=== PATIENT | male | born 1935 | race Caucasian/White ===

== ENCOUNTER 2017-06-25 16:45 | Inpatient (IN) | payer MEDICARE ==
[~2017-06-25] VITALS: Ht 167.6 cm; Wt 78.0 kg
--- NOTE | 2017-06-25 16:46 | NUR ---
LEONEL FROM HOME DT SOB. PATIENT IS AWAKE, ALERT AND ORIENTED. RESPIRATION EVEN AND UNLABORED. NO CHEST PAIN, PATIENT BIN MILD DISTRESS. PATIENT ON O2 VIA NC SATING 96%.SKIN IS WARM TO TOUCH AND NON DIAPHORETIC. PATIENT IS AFEBRILE. GOWNED PATIENT AND CONNECTED PATIENT TO TELE MONITOR.
[2017-06-25 17:17] LABS: BASOPHILS # (AUTO) 0.3 /CMM (0.0-0.2); BASOPHILS % (AUTO) 3.6 % (0.0-2.0); EOSINOPHILS % (AUTO) 0.2 % (0.0-6.0); HEMATOCRIT 28 % (39-51); HEMOGLOBIN 9.5 g/dL (13.5-17.5); LYMPHOCYTES # (AUTO) 0.5 /CMM (0.8-4.8); LYMPHOCYTES % (AUTO) 7.2 % (20.0-44.0); MEAN CORPUSCULAR HGB CONC 34 g/dl (31.0-36.0); MEAN CORPUSCULAR VOLUME 85 fL (80-96); MONOCYTES # (AUTO) 0.5 /CMM (0.1-1.30); MONOCYTES % (AUTO) 6.2 % (2.0-12.0); NEUTROPHILS # (AUTO) 6.1 /CMM (1.8-8.9); NEUTROPHILS % (AUTO) 82.8 % (43.0-81.0); PLATELET COUNT (AUTO) 172 /CMM (150-450); RDW COEFFICIENT OF VARIATION 14.2 (11.5-15.0); RED BLOOD CELL COUNT(AUTO) 3.31 MIL/uL (4.5-6.0); WHITE BLOOD COUNT (AUTO) 7.4 K/uL (4.3-11.0)
[2017-06-25 17:28] LABS: CARBON DIOXIDE 30 mmol/L (21-32); CHLORIDE 102 mmol/L (98-107); CREATININE 0.9 mg/dL (0.6-1.3); GLUCOSE 105 mg/dL (74-106); POTASSIUM 3.7 mmol/L (3.5-5.1); SODIUM SERUM 138 mmol/L (136-145); UREA NITROGEN, BLOOD 13 mg/dL (7-18)
[2017-06-25 17:35] LABS: TROPONIN I 0.028 ng/mL (0.00-0.056)
[2017-06-25 17:38] LABS: INR 2.63 (0.87-1.13)
[2017-06-25 17:40] LABS: ALANINE AMINOTRANSFERASE 28 U/L (12-78); ALBUMIN 3.5 g/dL (3.4-5.0); ALKALINE PHOSPHATASE 82 U/L (46-116); ASPARTATE AMINOTRANSFERASE 21 U/L (15-37); B-TYPE NATRIURETIC PEPTIDE 2048 PG/ML (0-125); BILIRUBIN,DIRECT 0.3 mg/dL (0.0-0.2); BILIRUBIN,TOTAL 1.4 mg/dL (0.2-1.0); TOTAL PROTEIN, SERUM 6.7 g/dL (6.4-8.2)
[2017-06-25] MEDS ORDERED: FUROSEMIDE 40 MG/4 ML VIAL IV ONE (18:00)
[2017-06-25] MEDS ORDERED: WARF3TAB59 PO (18:09)
[2017-06-25] MEDS ORDERED: WARF4TAB72 PO (18:09)
[2017-06-25] MEDS ORDERED: CYAN1TAB66 PO (18:09)
[2017-06-25] MEDS ORDERED: FUROSEMIDE 40 MG/4 ML VIAL ONE (18:09)
[2017-06-25] MEDS ORDERED: VALS1TAB4 PO (18:09)
[2017-06-25] MEDS ORDERED: TAMS0.4C34 PO (18:09)
[2017-06-25] MEDS ORDERED: DILTIAZEM HCL 50 MG IV ONE (18:24)
[2017-06-25] MEDS ORDERED: DILTIAZEM HCL 25 MG IV IV ONE (18:30)
[2017-06-25 18:31] LABS: BAND % (MANUAL) 4 % (0.0-5.0); BASOPHILS % (MANUAL) 0 % (0.0-2.0); EOSINOPHILS % (MANUAL) 0 % (0-4); LYMPHOCYTES % (MANUAL) 7 % (16-48); MONOCYTES % (MANUAL) 10 % (0-11.0); NEUTROPHILS % (MANUAL) 79 (42-76)
--- NOTE | 2017-06-25 19:17 | NUR ---
CALLED LE TOTE LEARNING STRATEGIST WAS PAGED.
--- NOTE | 2017-06-25 19:37 | NUR ---
[id number]- CHARMAINE- CALL ANYTIME
[2017-06-25] MEDS ORDERED: ZOLPIDEM TARTRATE 5 MG TABLET PO PRN (20:30)
[2017-06-25] MEDS ORDERED: Z GUARD REMEDY 2 OZ OINT TP PRN (20:30)
[2017-06-25] MEDS ORDERED: HYDROCODONE/APAP 5/325MG 1 EACH TABLET PO PRN (20:30)
[2017-06-25] MEDS ORDERED: ONDANSETRON HCL/PF 4 MG/2 ML VIAL IVP PRN (20:30)
[2017-06-25] MEDS ORDERED: MAG HYDROX/AL HYDROX/SIMETH 30 ML UDC PO PRN (20:30)
[2017-06-25] MEDS ORDERED: MAGNESIUM HYDROXIDE 30 ML UDC PO PRN (20:30)
--- NOTE | 2017-06-25 20:31 | NUR ---
PATIENT TRANSPORTED TO TELE. S
--- NOTE | 2017-06-25 21:00 | NUR ---
TELE/RN NOTES RECEIVED NEW ADMITTED PATIENT ARRIVED ON A GURNEY FROM ER, ACCOMPANIED BY FAMILY MEMBERS, ABLE TO WALK WITH CANE FOR AMBULATION, ALERT, ORIENTED X3, ABLE TO VERBALIZE NEEDS, SPEAKS SPANISH, FAMILY ASSIST WITH INTERPRETATION, DX WITH CHF AND AFIB, NOTED SOB AND REQUIRE OXYGEN VIA NC AT 3L, TELE MONITOR AFIB 112, NO PAIN VERBALIZED, VITAL SIGNS CHECK WITH LOW GRADE FEVER OF 99.1, FAMILY DISCUSSED CARE AND INFORMED NOT TO GIVE AMBIEN DUE TO CONFUSION AND PREFER MELATONIN TO F/U WITH MD, WILL CONTINUE TO MONITOR. BED IN LOCK POSITION, ROOM ORIENTATION PROVIDED, BELONGINGS CHECK, ON WARFARIN, WILL MONITOR.
[2017-06-25] MEDS: ACETAMINOPHEN 325 MG TABLET PO PRN (22:18)
[2017-06-25] MEDS: CARVEDILOL 6.25 MG TABLET PO SCH (22:33)
[2017-06-26] VITALS (10 sets, daily range): BP systolic 95–149; BP diastolic 38–82
[2017-06-26] MEDS: FUROSEMIDE 40 MG/4 ML VIAL IV SCH ×4 (00:04→17:48)
--- NOTE | 2017-06-26 00:28 | NUR ---
tele/rn notes MD MADE ROUNDS AND ORDERED FOR ALBUTEROL BREATHING TX WITH ATROVENT EVERY 6 HOURS DUE TO SOB AND WHEEZING. ORDERED CARRIED OUT.
[2017-06-26] MEDS: ALBUTEROL HALF STRENGTH 1.25 MG/3 ML VIAL.NEB NEB SCH ×4 (01:01→20:03)
[2017-06-26] MEDS: IPRATROPIUM NEB FS 0.5 MG/2.5 ML AMPUL.NEB NEB SCH ×4 (01:01→20:03)
[2017-06-26] MEDS: ACETAMINOPHEN 325 MG TABLET PO PRN ×2 (04:16→22:23)
--- NOTE | 2017-06-26 06:36 | NUR ---
TELE/RN CLOSING NOTES PATIENT IN BED, RESTING COMFORTABLY IN BED, AWAKE, ALERT X3, ABLE TO SLEEP INTERMITTENTLY, ON BREATHING TREATMENT EVERY 6 HOURS, SKIN WARM TO TOUCH, CALL LIGHTS WITHIN REACH, ASSIST AT ALL TIMES. BED IN LOCK POSITION, ON LASIX, ASSIST TO BATHROOM, WILL CONTINUE TO MONITOR.
[2017-06-26 06:50] LABS: BASOPHILS % (AUTO) 0.1 % (0.0-2.0); EOSINOPHILS % (AUTO) 0.2 % (0.0-6.0); HEMATOCRIT 29 % (39-51); HEMOGLOBIN 9.9 g/dL (13.5-17.5); LYMPHOCYTES # (AUTO) 0.5 /CMM (0.8-4.8); LYMPHOCYTES % (AUTO) 7.5 % (20.0-44.0); MEAN CORPUSCULAR HGB CONC 34 g/dl (31.0-36.0); MEAN CORPUSCULAR VOLUME 86 fL (80-96); MONOCYTES # (AUTO) 0.5 /CMM (0.1-1.30); NEUTROPHILS # (AUTO) 5.6 /CMM (1.8-8.9); NEUTROPHILS % (AUTO) 84.2 % (43.0-81.0); PLATELET COUNT (AUTO) 172 /CMM (150-450); RDW COEFFICIENT OF VARIATION 15.2 (11.5-15.0); RED BLOOD CELL COUNT(AUTO) 3.36 MIL/uL (4.5-6.0); WHITE BLOOD COUNT (AUTO) 6.6 K/uL (4.3-11.0)
--- NOTE | 2017-06-26 07:00 | NUR ---
REPORT RECEIVED AT THE BEDSIDE. PATIENT IS RESTING COMFORTABLY IN BED. MILD SOB THE PATIENT JUST AMBULATED FROM THE BATHROOM. NO APPARENT DISTRESS. PATIENT DENIES PAIN. HEART RATE AFIB IN THE 90'S. BED IN A LOW POSITION, CALL LIGHT WITHIN PATIENT REACH. WILL MONITOR.
[2017-06-26 07:04] LABS: B-TYPE NATRIURETIC PEPTIDE 3090 PG/ML (0-125); CALCIUM, SERUM 9.1 mg/dL (8.5-10.1); CARBON DIOXIDE 30 mmol/L (21-32); CHLORIDE 99 mmol/L (98-107); CREATININE 0.8 mg/dL (0.6-1.3); GLUCOSE 112 mg/dL (74-106); MAGNESIUM 1.9 mg/dL (1.8-2.4); PHOSPHORUS 3.8 mg/dL (2.5-4.9); POTASSIUM 3.2 mmol/L (3.5-5.1); SODIUM SERUM 137 mmol/L (136-145); UREA NITROGEN, BLOOD 16 mg/dL (7-18)
[2017-06-26 07:13] LABS: CHOLESTEROL 161 mg/dL (<200); HDL CHOLESTEROL 41 mg/dL (40-60); LDL 115 mg/dL (0-99); THYROID STIMULATING HORMONE 0.428 uIU/mL (0.358-3.74); TRIGLYCERIDES 60 mg/dL (30-150)
--- NOTE | 2017-06-26 08:44 | NUR ---
DR LI PLACED ORDER TO TRANSFER PT TO [facility]. CYNDEE, GENERATION ENGINEER, CALLED PHILLIP, NURSING VENEER GLUE JOINTER FEEDBACK, FOR A BED. WILL TRANSFER WHEN ABLE.
[2017-06-26] MEDS ORDERED: AMIODARONE 150 MG in IV D5W 100 ML IV ONE (09:00)
[2017-06-26] MEDS: CARVEDILOL 6.25 MG TABLET PO SCH ×2 (09:00→17:49)
[2017-06-26] MEDS: VALSARTAN 80 MG TABLET PO SCH (09:00)
--- NOTE | 2017-06-26 09:41 | NUR ---
PT TRANSFERRED TO [facility] FOR FURTHER TREATMENT. REPORT GIVEN TO MERLENE. NO SOB OR DISTRESS. PT STABLE DURING TRANSFER.
[2017-06-26] MEDS ORDERED: AMIODARONE 900 MG in IV D5W 500 ML IV PRN ×2 (10:00→10:54)
[2017-06-26] MEDS: TAMSULOSIN 0.4 MG CAP.SR.24H PO SCH (10:43)
[2017-06-26] MEDS: POTASSIUM CHLORIDE 20 MEQ TAB.PRT.SR PO SCH ×3 (10:44→13:50)
--- NOTE | 2017-06-26 16:36 | NUR ---
RN NOTE AMIODARONE DRIP STARTED AFTER THE BOLUS AT 1045, BUT E MAR FILED TO SAVE THE SCANNING OF THE MEDICATION ADMINISTRATION. THUS MEDICATION ADMINISTRATION ENTERED MANUALLY LATER.
[2017-06-26] MEDS: WARFARIN SODIUM 1 MG TABLET PO SCH (17:00)
[2017-06-26] MEDS: ENSURE ENLIVE CHOC 237 ML CAN PO SCH (18:30)
--- NOTE | 2017-06-26 19:30 | NUR ---
[facility]/RN NOTES: RECEIVED PT. IN CHAIR SITTING W/ O2 @ 3LPM VIA N/C SAT. 98%. ON TELE MONITOR W/ AFIB. CONTINENT OF B/B. USES URINAL. DENIES ANY C/O CHEST PAIN OR SOB AT PRESENT. PT. BELARUSIAN SPEAKING ONLY. ON AMIODARONE DRIP 0.5 MG. BEDS LOCKED AND IN LOW POSITION. ALL NEEDS MEET AND ATTENDED. CALL LIGHT W/ REACH. WILL CONTINUE TO MONITOR.
[2017-06-27] VITALS: BP 100/46
[2017-06-27] MEDS: FUROSEMIDE 40 MG/4 ML VIAL IV SCH ×5 (00:24→23:55)
[2017-06-27] MEDS: ALBUTEROL HALF STRENGTH 1.25 MG/3 ML VIAL.NEB NEB SCH ×5 (00:26→19:52)
[2017-06-27] MEDS: IPRATROPIUM NEB FS 0.5 MG/2.5 ML AMPUL.NEB NEB SCH ×5 (00:26→19:52)
[2017-06-27 04:00] VITALS: BP 127/58
[2017-06-27 06:13] LABS: BASOPHILS % (AUTO) 0.1 % (0.0-2.0); EOSINOPHILS % (AUTO) 1.2 % (0.0-6.0); HEMATOCRIT 33 % (39-51); HEMOGLOBIN 11.1 g/dL (13.5-17.5); LYMPHOCYTES # (AUTO) 1.3 /CMM (0.8-4.8); LYMPHOCYTES % (AUTO) 19.6 % (20.0-44.0); MEAN CORPUSCULAR HGB CONC 34 g/dl (31.0-36.0); MEAN CORPUSCULAR VOLUME 85 fL (80-96); MONOCYTES # (AUTO) 0.7 /CMM (0.1-1.30); MONOCYTES % (AUTO) 11.1 % (2.0-12.0); NEUTROPHILS # (AUTO) 4.4 /CMM (1.8-8.9); PLATELET COUNT (AUTO) 194 /CMM (150-450); RDW COEFFICIENT OF VARIATION 15.4 (11.5-15.0); RED BLOOD CELL COUNT(AUTO) 3.81 MIL/uL (4.5-6.0); WHITE BLOOD COUNT (AUTO) 6.5 K/uL (4.3-11.0)
[2017-06-27 06:29] LABS: TROPONIN I < 0.017 ng/mL (0.00-0.056)
[2017-06-27 06:36] LABS: INR 2.58 (0.87-1.13)
[2017-06-27 06:41] LABS: THYROID STIMULATING HORMONE 0.804 uIU/mL (0.358-3.74)
[2017-06-27 07:17] LABS: ALANINE AMINOTRANSFERASE 28 U/L (12-78); ALBUMIN 3.8 g/dL (3.4-5.0); ALKALINE PHOSPHATASE 85 U/L (46-116); ASPARTATE AMINOTRANSFERASE 25 U/L (15-37); BILIRUBIN,TOTAL 1.7 mg/dL (0.2-1.0); CALCIUM, SERUM 9.5 mg/dL (8.5-10.1); CARBON DIOXIDE 29 mmol/L (21-32); CHLORIDE 98 mmol/L (98-107); CREATININE 1.2 mg/dL (0.6-1.3); GLUCOSE 108 mg/dL (74-106); MAGNESIUM 2.1 mg/dL (1.8-2.4); PHOSPHORUS 4.1 mg/dL (2.5-4.9); POTASSIUM 3.5 mmol/L (3.5-5.1); SODIUM SERUM 137 mmol/L (136-145); TOTAL PROTEIN, SERUM 7.3 g/dL (6.4-8.2); UREA NITROGEN, BLOOD 24 mg/dL (7-18)
--- NOTE | 2017-06-27 07:43 | NUR ---
RN/[facility] NOTES: NO ACUTE CHANGES NOTED DURING THIS SHIFT. REPORT GIVEN TO NEXT SHIFT RN FOR MIKALA.
--- NOTE | 2017-06-27 07:52 | NUR ---
[facility] RN NOTE PATIENT ALERT , ORIENTED UP ON CHAIR, ON TELE MONITOR AFIB HR 85, ON3 L NC NO SOB NOTED AT THIS TIME NOTED , CONT ON AMIODARONE DRIP ORDERED, PLAN OF CARE DISCUSSED WITH PATIENT ,CALL LIGHT WITHIN REACH, WILL CONT TO MONITOR CLOSELY
[2017-06-27 08:00] VITALS: BP 133/54
[2017-06-27] MEDS: TAMSULOSIN 0.4 MG CAP.SR.24H PO SCH (08:19)
[2017-06-27] MEDS: CARVEDILOL 6.25 MG TABLET PO SCH ×2 (08:19→17:13)
[2017-06-27] MEDS: VALSARTAN 80 MG TABLET PO SCH (08:19)
[2017-06-27] MEDS: ENSURE ENLIVE CHOC 237 ML CAN PO SCH ×2 (08:38→17:00)
--- NOTE | 2017-06-27 09:30 | NUR ---
[facility] RN NOTE SPOKE WITH DR LI NOTIFIED THAT BP 72/45 THEN 83/55 PLACED BOTH FEET ELEVATED STOPPED AMIODARONE DRIP, ORDERED 250 ML NS BOLUS ,ORDER CARRIED OUT ALSO OK TO STOP AMIODARONE DRIP
[2017-06-27] MEDS ORDERED: IV NS 0.9% 250 ML IV STA (10:00)
--- NOTE | 2017-06-27 11:15 | NUR ---
[facility] RN NOTE SEEN BY DR LAZAR WITH ORDER GIVE STOOL SOFTENER ,AWARE THAT PATIENT WITH CHEST CONGESTION
[2017-06-27] MEDS ORDERED: POLYETHYLENE GLYCOL 3350 17 GM POWD.PACK PO ONE (11:30)
[2017-06-27 12:00] VITALS: BP 99/56
--- NOTE | 2017-06-27 12:00 | NUR ---
[facility] RN NOTE PER DR LI OK TO HOLD LASIX AT THIS TIME DUE TO BP WAS LOW EARLIER ASLO SPUTUM CX COLLECTED TAKEN TO LAB
[2017-06-27] MEDS: AMIODARONE HCL 200 MG TABLET PO SCH ×2 (12:41→17:15)
[2017-06-27] MEDS: SOD FERRIC GLUC 125 MG in IV NS 0.9% 100 ML IV SCH (14:19)
[2017-06-27 16:00] VITALS: BP 119/64
--- NOTE | 2017-06-27 16:00 | NUR ---
[facility] RN NOTE FAMILY AT BEDSIDE [facility] CD FROM [facility] PER REQUESTED DR COE PLACED IN CHART
[2017-06-27] MEDS: WARFARIN SODIUM 1 MG TABLET PO SCH (17:14)
[2017-06-27] MEDS: DOCUSATE SODIUM 100 MG CAPSULE PO SCH (17:15)
--- NOTE | 2017-06-27 18:24 | NUR ---
[facility] RN NOTE ALL NEEDS ATTENDED, NEW HL ON RT WRIST MANDA 22 INSERTED WITH GOOD BLOOD RETURN , NOT IN DISTRES
--- NOTE | 2017-06-27 19:30 | NUR ---
[facility]/RN NOTES: RECEIVED PT. IN CHAIR SITTING W/ O2 @ 3LPM VIA N/C SAT. 98%. ON TELE MONITOR W/ AFIB. CONTINENT OF B/B. USES URINAL. DENIES ANY C/O CHEST PAIN OR SOB AT PRESENT. PT. ALBANIAN SPEAKING ONLY. BEDS LOCKED AND IN LOW POSITION. ALL NEEDS MEET AND ATTENDED. CALL LIGHT W/ REACH. WILL CONTINUE TO MONITOR.
[2017-06-27 20:00] VITALS: BP 109/55
[2017-06-27] MEDS: ACETAMINOPHEN 325 MG TABLET PO PRN (23:58)
[2017-06-28] VITALS: BP 112/58
[2017-06-28] MEDS: IPRATROPIUM NEB FS 0.5 MG/2.5 ML AMPUL.NEB NEB SCH ×4 (01:40→19:44)
[2017-06-28] MEDS: ALBUTEROL HALF STRENGTH 1.25 MG/3 ML VIAL.NEB NEB SCH ×4 (01:40→19:45)
[2017-06-28 04:00] VITALS: BP 96/43
[2017-06-28] MEDS: FUROSEMIDE 40 MG/4 ML VIAL IV SCH ×3 (05:53→17:18)
[2017-06-28 06:38] LABS: INR 2.64 (0.87-1.13)
--- NOTE | 2017-06-28 07:38 | NUR ---
[facility]/RN NOTES: NO ACUTE CHANGE NOTED DURING THIS SHIFT. REPORT GIVEN TO AM NURSE FOR MIKALA.
[2017-06-28 08:00] VITALS: BP 112/67
--- NOTE | 2017-06-28 08:00 | NUR ---
TD/RN AM SHIFT INITIAL NOTES RECEIVED PT AWAKE SITTING IN BED, PT A/O X 3-4 MAINLY GREENLANDIC SPEAKING, UNDERSTANDS A LITTLE MAURITANIAN, NO S/S OF ACUTE RESPIRATORY DISTRESS OR CHANGE OF CONDITION. ON 3L O2 VIA N/C SATURATING @ 95%, NOTED WITH RHONCHI AND WHEEZING LUNG SOUNDS. ON TELE WITH CONTROLLED A-FIB, HR 86. IV SITE FLUSHED, PATENT WITH NO S/S OF INFECTION, SL. 3RD SPUTUM SAMPLE TAKEN AND SENT TO LAB. SCHEDULED AM MEDS TO BE GIVEN. CL WITHIN REACHED, SAFETY MAINTAINED AND ISOLATION OBSERVED. ON GOING MONITORING.
[2017-06-28 08:12] LABS: IMMUNOGLOBULIN A, SERUM 115 mg/dL (61-437); IMMUNOGLOBULIN G, SERUM 908 mg/dL (700-1600); IMMUNOGLOBULIN M, SERUM 77 mg/dL (15-143)
[2017-06-28] MEDS: ENSURE ENLIVE CHOC 237 ML CAN PO SCH ×2 (08:39→17:20)
[2017-06-28] MEDS: DOCUSATE SODIUM 100 MG CAPSULE PO SCH ×2 (08:39→17:14)
[2017-06-28] MEDS: TAMSULOSIN 0.4 MG CAP.SR.24H PO SCH (08:40)
[2017-06-28] MEDS: AMIODARONE HCL 200 MG TABLET PO SCH ×3 (08:40→17:18)
[2017-06-28] MEDS: CARVEDILOL 6.25 MG TABLET PO SCH ×2 (08:40→17:17)
[2017-06-28] MEDS: VALSARTAN 80 MG TABLET PO SCH (08:40)
--- NOTE | 2017-06-28 08:45 | NUR ---
TD/RN ROUNDS - DR. LAZAR UPDATED PT'S CONDITION. PT SEEN & EXAMINED BY DR. LAZAR. NO NEW ORDERS RECEIVED AT THIS TIME. NO NEW ORDERS RECEIVED AT THIS TIME. MONITORING CONTINUED.
--- NOTE | 2017-06-28 10:53 | NUR ---
TD/RN PHYSICAL THERAPIST PT SEEN & EVALUATED BY PHYSICAL THERAPIST, PER THERAPIST PT ABLE TO TRANSFER FROM BED TO CHAIR, NOTED WITH SLIGHT DROP OF BP WHEN STANDING (PT HAS JUST TAKEN BP MEDS THIS MORNING). MONITORING CONTINUED.
[2017-06-28 12:00] VITALS: BP 98/57
--- NOTE | 2017-06-28 12:00 | NUR ---
TD/RN ROUNDS - DR. COE UPDATED PT'S CONDITION. PT SEEN & EXAMINED BY DR. COE. NO NEW ORDERS RECEIVED AT THIS TIME. DR. COE HAS SPOKEN TO PT'S SON-IN-LAW REGARDING UPDATE OF HIS CONDITION. NO NEW ORDERS RECEIVED AT THIS TIME. ON GOING MONITORING.
[2017-06-28] MEDS: SOD FERRIC GLUC 125 MG in IV NS 0.9% 100 ML IV SCH (15:10)
[2017-06-28 16:00] VITALS: BP 110/71
[2017-06-28 16:20] LABS: QFT TB AG MINUS NIL VALUE 0.46 IU/mL (.); QFT TB AG VALUE 0.64 IU/mL (.); QFT TB GOLD Positive (Negative)
[2017-06-28] MEDS: WARFARIN SODIUM 1 MG TABLET PO SCH (17:15)
--- NOTE | 2017-06-28 19:37 | NUR ---
TD/RN AM SHIFT END NOTES ALL NEEDS MET. NO ACUTE CHANGE OF CONDITION NOTED DURING THE SHIFT. PT ENDORSED TO PM NURSE TO CONTINUE CARE. CL WITHIN REACHED Addendum: 06/28/17 at 1939 by AI NAVA RN ADDENDUM: CL WITHIN REACHED, SAFETY MAINTAINED AND ISOLATION OBSERVED.
[2017-06-28 20:00] VITALS: BP 116/61
--- NOTE | 2017-06-28 20:15 | NUR ---
RN NOTES PATIENT IN BED, AWAKE WATCHING TV WITH NO RESPIRATORY DISTRESS OR SHORTNESS OF BREATH. BREATHING EVEN AND UNLABORED. 02 AT 3LPM VIA NASAL CANNULA TOLERATING WELL. NO COMPLAINT OF PAIN OR DISCOMFORT OF THIS TIME. ALERT AND ORIENTED, VERBALLY ABLE TO COMMUNICATE NEEDS. REMAINS ON CONTACT ISOLATION FOR SUSPECTED TB. KEPT CLEAN AND DRY. WILL CONTINUE TO MONITOR.
[2017-06-28] MEDS: ACETAMINOPHEN 325 MG TABLET PO PRN (22:51)
[2017-06-29] VITALS (8 sets, daily range): BP systolic 91–152; BP diastolic 50–72
[2017-06-29] MEDS: FUROSEMIDE 40 MG/4 ML VIAL IV SCH ×2 (00:52→05:26)
[2017-06-29] MEDS: ALBUTEROL HALF STRENGTH 1.25 MG/3 ML VIAL.NEB NEB SCH ×4 (01:16→19:30)
[2017-06-29] MEDS: IPRATROPIUM NEB FS 0.5 MG/2.5 ML AMPUL.NEB NEB SCH ×4 (01:16→19:30)
[2017-06-29 06:33] LABS: BASOPHILS % (AUTO) 0.2 % (0.0-2.0); EOSINOPHILS % (AUTO) 2.3 % (0.0-6.0); HEMATOCRIT 29 % (39-51); HEMOGLOBIN 9.9 g/dL (13.5-17.5); LYMPHOCYTES # (AUTO) 1.1 /CMM (0.8-4.8); LYMPHOCYTES % (AUTO) 18.2 % (20.0-44.0); MEAN CORPUSCULAR HGB CONC 34 g/dl (31.0-36.0); MEAN CORPUSCULAR VOLUME 85 fL (80-96); MONOCYTES # (AUTO) 0.6 /CMM (0.1-1.30); MONOCYTES % (AUTO) 9.3 % (2.0-12.0); NEUTROPHILS # (AUTO) 4.4 /CMM (1.8-8.9); PLATELET COUNT (AUTO) 207 /CMM (150-450); RDW COEFFICIENT OF VARIATION 15.2 (11.5-15.0); RED BLOOD CELL COUNT(AUTO) 3.41 MIL/uL (4.5-6.0); WHITE BLOOD COUNT (AUTO) 6.3 K/uL (4.3-11.0)
--- NOTE | 2017-06-29 06:41 | NUR ---
RN CLOSING NOTES IN BED SLEEPING WITH NO DISTRESS NOTED. BREATHING EVEN AND UNLABORED. NO COMPLAINT OF PAIN OR DISCOMFORT. NO SIGNIFICANT CHANGE OF CONDITION. VITAL SINGS WNL. KEPT CLEAN AND DRY. WILL ENDORSE TO AM SHIFT FOR CONTINUITY OF CARE.
[2017-06-29 06:56] LABS: INR 3.53 (0.87-1.13)
[2017-06-29 07:06] LABS: CALCIUM, SERUM 8.8 mg/dL (8.5-10.1); CARBON DIOXIDE 30 mmol/L (21-32); CHLORIDE 98 mmol/L (98-107); CREATININE 1.9 mg/dL (0.6-1.3); GLUCOSE 98 mg/dL (74-106); MAGNESIUM 2.1 mg/dL (1.8-2.4); PHOSPHORUS 4.3 mg/dL (2.5-4.9); POTASSIUM 3.1 mmol/L (3.5-5.1); SODIUM SERUM 137 mmol/L (136-145); UREA NITROGEN, BLOOD 42 mg/dL (7-18)
--- NOTE | 2017-06-29 07:30 | NUR ---
TD/RN AM SHIFT INITIAL NOTES RECEIVED PT AWAKE SITTING IN BED, PT A/O X 3-4 .NO S/S OF ACUTE RESPIRATORY DISTRESS OR CHANGE OF CONDITION. ON 3L O2 VIA N/C SATURATING @ 95%, NOTED WITH RHONCHI AND WHEEZING LUNG SOUNDS. ON TELE WITH CONTROLLED A-FIB, HR 86. IV SITE C.D.I and Patent, 3RD SPUTUM SAMPLE TAKEN AND SENT TO LAB. SCHEDULED AM MEDS TO BE GIVEN. CL WITHIN REACHED, SAFETY MAINTAINED AND ISOLATION OBSERVED. ON GOING MONITORING.
[2017-06-29] MEDS: ENSURE ENLIVE CHOC 237 ML CAN PO SCH ×2 (08:00→17:47)
[2017-06-29] MEDS: CARVEDILOL 6.25 MG TABLET PO SCH ×2 (09:00→16:05)
[2017-06-29] MEDS: AMIODARONE HCL 200 MG TABLET PO SCH ×3 (09:00→16:05)
[2017-06-29] MEDS: DOCUSATE SODIUM 100 MG CAPSULE PO SCH ×2 (09:40→16:05)
[2017-06-29] MEDS: TAMSULOSIN 0.4 MG CAP.SR.24H PO SCH (09:40)
[2017-06-29] MEDS: POTASSIUM CHLORIDE 20 MEQ TAB.PRT.SR PO SCH ×2 (13:00→13:05)
[2017-06-29] MEDS ORDERED: POTASSIUM CHLORIDE 20 MEQ TAB.PRT.SR PO SCH (16:00)
[2017-06-29] MEDS: SOD FERRIC GLUC 125 MG in IV NS 0.9% 100 ML IV SCH (16:04)
--- NOTE | 2017-06-29 19:46 | NUR ---
PT. is stable condition.no s/s of distress.V/S WNL .Endorsed to next shift.All m.d orders noted and carried out.
--- NOTE | 2017-06-29 20:00 | NUR ---
MS MATILDE INITIAL NOTES RECEIVED REPORT FROM AM NURSE AND SEEN PT IN BED AWAKE AND ALERT NO SOB NOTED WITH O2 AT 23LITERS VIA NC , DENIES ANY PAIN AT THIS TIME . CITIZEN OF [place] AND [place] SPEAKING BUT UNDERSTOOD AND SPEAK A LITTLE CUBAN. KEPT HIM WARM AND COMFORTABLE AT ALL TIMES. ON AIRBORNE PRECAUTION ORDERED. EDUCATE AND ENCOURAGE TO USED THE CALL LIGHT . PLACE CALL LIGHT AT REACH. WILL CONTINUE TO MONITOR.
[2017-06-29] MEDS: ACETAMINOPHEN 325 MG TABLET PO PRN (22:27)
--- NOTE | 2017-06-29 22:27 | NUR ---
MS MEDIA PRODUCTION MANAGER NOTES PT CALLED AND COMPLAINING OF HEADACHE . TYLENOL PO GIVEN ORDERED. WILL CONTINUE TO MONITOR.
[2017-06-30] MEDS: IPRATROPIUM NEB FS 0.5 MG/2.5 ML AMPUL.NEB NEB PRN ×3 (00:05→13:54)
[2017-06-30] MEDS: ALBUTEROL HALF STRENGTH 1.25 MG/3 ML VIAL.NEB NEB PRN ×3 (00:05→13:54)
--- NOTE | 2017-06-30 00:05 | NUR ---
MS MATILDE NOTES BREATHING TREATMENT RENDERED BY RT ORDERED. KEPT HIM WARM AND COMFORTABLE AT ALL TIMES PLACE CALL LIGHT AT REACH. WILL CONTINUE MONITORING.
[2017-06-30 04:00] VITALS: BP 122/70
--- NOTE | 2017-06-30 06:48 | NUR ---
MS MOLDER LABELS CLOSING NOTES PT SLEEPING COMFORTABLY IN BED WITHOUT ANY ACUTE DISTRESS NOTED. ALL NEEDS MET AND KEPT HIM WARM AND COMFORTABLE AT ALL TIMES. ISOLATION PRECAUTION IMPLEMENTED AND OBSERVED. WILL ENDORSE TO AM NURSE FOR CONTINUITY OF CARE. PLACE CALL LIGHT AT REACH.
[2017-06-30 07:08] LABS: BASOPHILS # (AUTO) 0.1 /CMM (0.0-0.2); BASOPHILS % (AUTO) 1.1 % (0.0-2.0); EOSINOPHILS % (AUTO) 1.7 % (0.0-6.0); HEMATOCRIT 29 % (39-51); HEMOGLOBIN 9.6 g/dL (13.5-17.5); LYMPHOCYTES % (AUTO) 14.8 % (20.0-44.0); MEAN CORPUSCULAR HGB CONC 33 g/dl (31.0-36.0); MEAN CORPUSCULAR VOLUME 85 fL (80-96); MONOCYTES # (AUTO) 0.5 /CMM (0.1-1.30); MONOCYTES % (AUTO) 7.7 % (2.0-12.0); NEUTROPHILS # (AUTO) 4.9 /CMM (1.8-8.9); NEUTROPHILS % (AUTO) 74.7 % (43.0-81.0); PLATELET COUNT (AUTO) 198 /CMM (150-450); RDW COEFFICIENT OF VARIATION 15.6 (11.5-15.0); RED BLOOD CELL COUNT(AUTO) 3.38 MIL/uL (4.5-6.0); WHITE BLOOD COUNT (AUTO) 6.5 K/uL (4.3-11.0)
[2017-06-30 07:22] LABS: INR 3.12 (0.87-1.13)
[2017-06-30 07:27] LABS: CALCIUM, SERUM 8.8 mg/dL (8.5-10.1); CARBON DIOXIDE 31 mmol/L (21-32); CHLORIDE 101 mmol/L (98-107); CREATININE 1.2 mg/dL (0.6-1.3); GLUCOSE 96 mg/dL (74-106); MAGNESIUM 2.1 mg/dL (1.8-2.4); PHOSPHORUS 2.9 mg/dL (2.5-4.9); POTASSIUM 3.6 mmol/L (3.5-5.1); SODIUM SERUM 139 mmol/L (136-145); UREA NITROGEN, BLOOD 38 mg/dL (7-18)
[2017-06-30 08:00] VITALS: BP 136/71
[2017-06-30] MEDS: TAMSULOSIN 0.4 MG CAP.SR.24H PO SCH (11:28)
[2017-06-30] MEDS: AMIODARONE HCL 200 MG TABLET PO SCH ×3 (11:28→20:00)
[2017-06-30] MEDS: DOCUSATE SODIUM 100 MG CAPSULE PO SCH ×2 (11:29→16:15)
[2017-06-30] MEDS: CARVEDILOL 6.25 MG TABLET PO SCH ×2 (11:29→16:39)
[2017-06-30] MEDS: ENSURE ENLIVE CHOC 237 ML CAN PO SCH ×2 (11:40→20:00)
[2017-06-30] MEDS: SOD FERRIC GLUC 125 MG in IV NS 0.9% 100 ML IV SCH (15:45)
--- NOTE | 2017-06-30 15:45 | NUR ---
RN NOTES STARTED REIT IV. PRIMARY RN TO FOLLOW UP.
--- NOTE | 2017-06-30 19:55 | NUR ---
MS/RM NOTES OBSERVED RIGHT FOREARM REDNESS SWOLLLEN, PER RN AM SHIFT REPORTED .
[2017-06-30 20:00] VITALS: BP 109/56
--- NOTE | 2017-06-30 20:00 | NUR ---
TELE/RN OPENING NOTES PATIENT IN BED, ON ISOLATION FOR TB , RESPIRATIONS EVEN AND UNLABORED , VITAL SIGNS CHECK, MONITORING FOR ANY CHANGES, SKIN WARM TO TOUCH, FAMILY AT BED SIDE, RECEIVED REPORT FROM AM RN FOR MIKALA. WILL MONITOR.
--- NOTE | 2017-06-30 20:01 | NUR ---
ms/rn notes 1700 AMIODARONE NOT GIVEN BY AM RN , B/P CHECK 109/56M PULSE 65
--- NOTE | 2017-06-30 20:02 | NUR ---
MS/RN NOTES 1700 ENSURE NOT GIVEN BY AM RN
[2017-06-30] MEDS: ACETAMINOPHEN 325 MG TABLET PO PRN (21:50)
[2017-07-01 04:00] VITALS: BP 108/62
[2017-07-01 07:57] LABS: INR 3.1 (0.87-1.13)
[2017-07-01 08:00] VITALS: BP 131/62
[2017-07-01] MEDS: IPRATROPIUM NEB FS 0.5 MG/2.5 ML AMPUL.NEB NEB PRN (08:05)
[2017-07-01] MEDS: ALBUTEROL HALF STRENGTH 1.25 MG/3 ML VIAL.NEB NEB PRN (08:06)
[2017-07-01] MEDS: CARVEDILOL 6.25 MG TABLET PO SCH ×2 (10:07→17:00)
[2017-07-01] MEDS: AMIODARONE HCL 200 MG TABLET PO SCH ×3 (10:08→18:52)
[2017-07-01] MEDS: DOCUSATE SODIUM 100 MG CAPSULE PO SCH ×2 (10:09→18:51)
[2017-07-01] MEDS: TAMSULOSIN 0.4 MG CAP.SR.24H PO SCH (10:09)
[2017-07-01] MEDS: ENSURE ENLIVE CHOC 237 ML CAN PO SCH ×2 (10:27→17:00)
[2017-07-01] MEDS: GUAIFENESIN/CODEINE 10 ML UDC PO PRN ×3 (10:27→18:16)
[2017-07-01] MEDS: SOD FERRIC GLUC 125 MG in IV NS 0.9% 100 ML IV SCH (14:23)
[2017-07-01 16:00] VITALS: BP 101/48
[2017-07-01] MEDS: MEGESTROL ACETATE 40 MG TABLET PO SCH (18:51)
--- NOTE | 2017-07-01 18:54 | NUR ---
HEAVY MACHINERY ASSEMBLER NOTE: PT DOESNT HAVE DESIRE TO EAT OR DRINK MUCH
[2017-07-01 20:00] VITALS: BP 101/47
[2017-07-01] MEDS: ACETAMINOPHEN 325 MG TABLET PO PRN (20:28)
[2017-07-02 04:00] VITALS: BP 110/57
[2017-07-02 06:28] LABS: CALCIUM, SERUM 9.2 mg/dL (8.5-10.1); CARBON DIOXIDE 34 mmol/L (21-32); CHLORIDE 103 mmol/L (98-107); CREATININE 1.1 mg/dL (0.6-1.3); GLUCOSE 110 mg/dL (74-106); POTASSIUM 3.9 mmol/L (3.5-5.1); SODIUM SERUM 139 mmol/L (136-145); UREA NITROGEN, BLOOD 34 mg/dL (7-18)
[2017-07-02 06:31] LABS: EOSINOPHILS % (AUTO) 1.5 % (0.0-6.0); HEMATOCRIT 29 % (39-51); HEMOGLOBIN 9.9 g/dL (13.5-17.5); LYMPHOCYTES # (AUTO) 1.2 /CMM (0.8-4.8); LYMPHOCYTES % (AUTO) 14.2 % (20.0-44.0); MEAN CORPUSCULAR HGB CONC 34 g/dl (31.0-36.0); MEAN CORPUSCULAR VOLUME 86 fL (80-96); MONOCYTES # (AUTO) 0.6 /CMM (0.1-1.30); MONOCYTES % (AUTO) 6.9 % (2.0-12.0); NEUTROPHILS # (AUTO) 6.5 /CMM (1.8-8.9); NEUTROPHILS % (AUTO) 77.4 % (43.0-81.0); PLATELET COUNT (AUTO) 219 /CMM (150-450); RDW COEFFICIENT OF VARIATION 15.1 (11.5-15.0); RED BLOOD CELL COUNT(AUTO) 3.39 MIL/uL (4.5-6.0); WHITE BLOOD COUNT (AUTO) 8.4 K/uL (4.3-11.0)
[2017-07-02 06:34] LABS: ALANINE AMINOTRANSFERASE 23 U/L (12-78); ALBUMIN 3.3 g/dL (3.4-5.0); ALKALINE PHOSPHATASE 78 U/L (46-116); ASPARTATE AMINOTRANSFERASE 14 U/L (15-37); BILIRUBIN,DIRECT 0.2 mg/dL (0.0-0.2); BILIRUBIN,TOTAL 0.5 mg/dL (0.2-1.0); MAGNESIUM 2.5 mg/dL (1.8-2.4); PHOSPHORUS 2.8 mg/dL (2.5-4.9); TOTAL PROTEIN, SERUM 6.9 g/dL (6.4-8.2)
[2017-07-02 07:09] LABS: IMMUNOGLOBULIN E,TOTAL 106 IU/mL (0-100)
--- NOTE | 2017-07-02 07:30 | NUR ---
RN CLOSING NOTES PATIENT IN STABLE CONDITION. ALL NEEDS ATTENDED AND PROVIDED. KEPT PATIENT SAFE AND COMFORTABLE. BED IN LOW/LOCKED POSITION, SIDERAILS UPX2, CALL LIGHT IN REACH. ENDORSED TO NIGHT RN FOR MIKALA. Addendum: 07/02/17 at 2007 by ZAK GOMEZ WRONG TIME: 1929
--- NOTE | 2017-07-02 07:30 | NUR ---
RN OPENING NOTES RECEIVED PATIENT IN BED RESTING, A/OX4. NO ACUTE DISTRESS, NO SOB, DENIED PAIN OR DISCOMFORT AT THIS TIME. IV SITE INTACT AND PATENT. PER NIGHT RN, ISOLATION WAS D/C. KEPT PATIENT SAFE AND COMFORTABLE. BED IN LOW/LOCKED POSITION, SIDERAILS UPX2, CALL LIGHT IN REACH. WILL CONTINUE TO MONITOR ACCORDINGLY.
[2017-07-02 08:00] VITALS: BP 132/66
[2017-07-02] MEDS: TAMSULOSIN 0.4 MG CAP.SR.24H PO SCH (09:03)
[2017-07-02] MEDS: DOCUSATE SODIUM 100 MG CAPSULE PO SCH ×2 (09:03→17:30)
[2017-07-02] MEDS: MEGESTROL ACETATE 40 MG TABLET PO SCH (09:03)
[2017-07-02] MEDS: CARVEDILOL 6.25 MG TABLET PO SCH ×2 (09:04→17:33)
[2017-07-02] MEDS: AMIODARONE HCL 200 MG TABLET PO SCH ×3 (09:04→17:33)
[2017-07-02] MEDS: ENSURE ENLIVE CHOC 237 ML CAN PO SCH ×2 (10:25→17:34)
[2017-07-02 16:00] VITALS: BP 136/74
--- NOTE | 2017-07-02 19:30 | NUR ---
RN CLOSING NOTES PATIENT IN STABLE CONDITION. ALL NEEDS ATTENDED AND PROVIDED. KEPT PATIENT SAFE AND COMFORTABLE. BED IN LOW/LOCKED POSITION, SIDERAILS UPX2, CALL LIGHT IN REACH. ENDORSED TO NIGHT RN FOR MIKALA.
[2017-07-02] MEDS: GUAIFENESIN/CODEINE 10 ML UDC PO PRN (19:54)
[2017-07-02 20:00] VITALS: BP 108/54
[2017-07-03 04:00] VITALS: BP 127/60
--- NOTE | 2017-07-03 07:35 | NUR ---
RN OPENING NOTES RECEIVED PATIENT IN BED RESTING,EASILY AROUSABLE DURING CARE A/OX4. NO ACUTE DISTRESS, NO SOB, DENIED PAIN OR DISCOMFORT AT THIS TIME. IV SITE INTACT AND PATENT, NO REDNESS OR INFILTRATION NOTED. ISOLATION WAS D/C'D. KEPT PATIENT CLEAN, SAFE AND COMFORTABLE. BED IN LOW/LOCKED POSITION, SIDERAILS UPX2, CALL LIGHT IN REACH. WILL CONTINUE TO MONITOR .
[2017-07-03 08:00] VITALS: BP 131/55
[2017-07-03] MEDS: ENSURE ENLIVE CHOC 237 ML CAN PO SCH (08:00)
[2017-07-03] MEDS: CARVEDILOL 6.25 MG TABLET PO SCH (08:44)
[2017-07-03] MEDS: MEGESTROL ACETATE 40 MG TABLET PO SCH (08:44)
[2017-07-03] MEDS: DOCUSATE SODIUM 100 MG CAPSULE PO SCH (08:45)
[2017-07-03] MEDS: AMIODARONE HCL 200 MG TABLET PO SCH (08:45)
[2017-07-03] MEDS: TAMSULOSIN 0.4 MG CAP.SR.24H PO SCH (08:45)
[2017-07-03 12:00] VITALS: BP 131/55
--- NOTE | 2017-07-03 13:15 | NUR ---
PLASTER CASTER NOTES PATIENT AWAKE ALERT AND VERBALLY RESPONSIVE, POLISH SPEAKING . NO ACUTE DISTRESS, NO RESPIRATORY DISTRESS NOTED. NO PAIN OR DISCOMFORT AT THIS TIME. IV SITE AND ID BAND REMOVED WITH NO ASE NOTED.ALL DISCHARGE INSTRUCTIONS REVIEWED WITH PT AND FAMILY WITH VERBAL UNDERSTANDING NOTED. PICTURES OF SKIN TAKEN AND PLACED IN CHART. PATIENT ASSISTED TO LOBBY BY COCOA BUTTER FILTER OPERATOR DISCHARGED IN STABLE CONDITION
[2017-07-05 11:14] LABS: *ANCANTIMYELOPEROXIDASE (MPO) <9.0 U/mL (0.0-9.0); *ANCANTIPROTEINASE 3 (PR-3) AB <3.5 U/mL (0.0-3.5)
[2017-07-05 14:21] LABS: *ANCA ATYPICAL p-ANCA <1:20 titer (Neg:<1:20); *ANCA CYTOPLASMIC (C-ANCA) <1:20 titer (Neg:<1:20); *ANCA PERINUCLEAR (P-ANCA) <1:20 titer (Neg:<1:20)
== END 2017-07-03 13:13 | disposition home or self-care (01) | DRG 180 ==
LOC: ER 16:47 → TELE 20:27 → TELE-TD 06-26 08:59 → TELE1 06-29 08:16 → MEDSG1 06-29 11:39
DX: C34.11 Malignant neoplasm of upper lobe, right bronchus or lung (principal); J96.01 Acute respiratory failure with hypoxia; I50.33 Acute on chronic diastolic (congestive) heart failure; E83.41 Hypermagnesemia; D68.59 Other primary thrombophilia; I42.9 Cardiomyopathy, unspecified; I48.91 Unspecified atrial fibrillation; R17 Unspecified jaundice; I11.0 Hypertensive heart disease with heart failure; I05.0 Rheumatic mitral stenosis; D64.9 Anemia, unspecified; N40.0 Benign prostatic hyperplasia without lower urinary tract symptoms; Z88.8 Allergy status to other drugs, medicaments and biological substances; Z95.2 Presence of prosthetic heart valve; Z95.1 Presence of aortocoronary bypass graft; Z87.891 Personal history of nicotine dependence; Z79.01 Long term (current) use of anticoagulants; D63.8 Anemia in other chronic diseases classified elsewhere
CPT/HCPCS: 36415; 71045-TC; 71250-TC; 80048-TC; 80053-TC; 80061-TC; 80076-TC; 82164; 82728-TC; 82746; 82784; 82785; 83520; 83540-TC; 83735-TC; 83880; 84100-TC; 84443-TC; 84484-TC; 85025-TC; 85610-TC; 85730-TC; 86140-TC; 86256; 86431-TC; 87081-TC; 87102-TC; 87116; 87206; 87899; 88305-TC; 88312-TC; 93307-TC; 94640-TC; 94799-TC; 97116-TC; 97530-TC; A4606; J0282; J1940; J2916; J3490; J7030; J7050; J7060; Z7610